=== PATIENT | male | born 1965 | race Caucasian/White ===

== ENCOUNTER 2018-12-29 13:22 | Day surgery (SDC) | payer OTHER ==
[2018-12-29] VITALS (12 sets, daily range): BP systolic 84–131; BP diastolic 40–79; PULSE 60–78; RESP 14–18; Ht 175.3 cm; Wt 86.2 kg
[~2018-12-29] VITALS: Ht 175.3 cm; Wt 86.2 kg
[~2018-12-29 13:22] MED LIST: ASPI-817 PO; ATOR20TA38 PO; LISI-524 PO; NIFE30TA66 PO
[2018-12-29] MEDS ORDERED: LACTATED RINGER'S 1,000 ML IV SCH (15:00)
--- NOTE | 2018-12-29 15:22 | PREAC ---
Date/Time of Note Date/Time of Note DATE: 12/29/18 TIME: 15:21 Anesthesia Eval and Record Evaluation Time Pre-Procedure Interview DATE: 12/29/18 TIME: 15:21 Age 53 Sex male NPO: 8 hrs Preoperative diagnosis Left proximal ulna deep mass, left elbow olecranon bursitis, left elbow olecranon osteophyte Planned procedure Left proximal ulna mass excision, left elbow olecranon bursectomy Past Medical History Past Medical History: Includes Cardio: HTN, Dyslipidemia Endo: Other (Gout) Surgery & Anesthesia Issues No known issue Meds Anticoagulation: No Beta Emily within 24 hr: No Reason Beta Emily not given: Pt. not on B-Emily Active Scripts Atorvastatin Calcium* (Atorvastatin Calcium*) 20 Mg Tablet, 20 MG PO QHS, #30 TAB Prov:EDWINA MCKEON NP 07/06/15 Nifedipine* (Procardia XL*) 30 Mg Tabsr, 30 MG PO DAILY for 30 Days, TAB Prov:EDWINA MCKEON NP 07/06/15 Lisinopril* (Zestril*) 10 Mg Tab, 10 MG PO DAILY for 30 Days, TAB Prov:EDWINA MCKEON LITHOGRAPH DESIGNER 07/06/15 Aspirin* (Aspirin* EC) 81 Mg Tabec, 81 MG PO DAILY for 30 Days Prov:EDWINA MCKEON NP 07/06/15 Current Medications Lactated Ringer's 1,000 ml @ 25 mls/hr Q24H IV ; Start 12/29/18 at 15:00 Meds reviewed: Yes Allergies Coded Allergies: No Known Allergy (Unverified , 12/29/18) Allergies Reviewed: Yes Labs/Studies Labs Reviewed: Reviewed by anesthesiologist test: N/A Pre-procedure Exam Last vitals Vital Signs Date Temp Pulse Resp B/P (MAP) Pulse Ox O2 O2 Flow FiO2 Time Delivery Rate 12/29/18 97.7 60 16 131/79 100 Room Air 15:01 (96) Airway: Adequate mouth opening Mallampati: Mallampati I Teeth: Normal Lung: Normal Heart: Normal ASA Physical Status ASA physical status: 2 Emergency: None Planned Anesthetic General/MAC: LMA Planned Pain Management Parenteral pain med Pre-operative Attestations Prior to commencing anesthesia and surgery, the patient was re-evaluated, there was verification of: *The patient's identity *The results of appropriate recent lab work and preoperative vital signs *The above evaluation not changing prior to induction *Anesthetic plan, risk benefits, alternative and complications discussed with patient/family; questions answered; patient/family understands, accepts and wishes to proceed. JOHN AMAYA MD Dec 29, 2018 15:22
--- NOTE | 2018-12-29 17:48 | HPN ---
Date/Time of Note Date/Time of Note DATE: 12/29/18 TIME: 17:48 Interval H&P Admission Note Pt. seen H&P reviewed: No system changes ESTRELLITA FAM Dec 29, 2018 17:48
[2018-12-29] MEDS ORDERED: CEFAZOLIN 1 GM INJ ONE (17:53)
[2018-12-29] MEDS ORDERED: MIDAZOLAM 1 MG/ML 2 ML INJ ONE (17:53)
[2018-12-29] MEDS ORDERED: FENTAnyl 50 MCG/ML VIAL ONE (17:53)
[2018-12-29] MEDS ORDERED: PROPOFOL 20 ML ONE (17:53)
[2018-12-29] MEDS ORDERED: ROPIVACAINE 0.5 % 30 ML VIAL ONE (17:53)
[2018-12-29] MEDS ORDERED: METOCLOPRAMIDE 10 MG INJ ONE (18:24)
[2018-12-29] MEDS ORDERED: ONDANSETRON 4 MG INJ ONE (18:24)
[2018-12-29] MEDS ORDERED: DEXAMETHASONE 4 MG/ML 5 ML INJ ONE (18:24)
[2018-12-29] MEDS ORDERED: KETOROLAC 30 MG INJ ONE (18:24)
[2018-12-29] MEDS ORDERED: EPHEDrine 25 MG/5 ML SYG ONE (18:26)
--- NOTE | 2018-12-29 18:39 | OPPN ---
Date/Time of Note Date/Time of Note DATE: 12/29/18 TIME: 18:38 Operative Report Preoperative Diagnosis left elbow mass, olecranon bursitis, osteophyte Postoperative Diagnosis left elbow mass, olecranon bursitis, osteophyte Operation/Procedure Performed left elbow mass excision, olecranon bursectomy, osteophyte excision Surgeon see signature line entry level administrative assistant none Anesthesia: general Estimated blood loss: 0 - 10 ml's Transfusion Required none Specimen mass Grafts/Implants none Complications none ESTRELLITA FAM Dec 29, 2018 18:39
--- NOTE | 2018-12-29 18:43 | PAC ---
Date/Time of Note Date/Time of Note DATE: 12/29/18 TIME: 18:43 Post-Anesthesia Notes Post-Anesthesia Note Last documented vital signs Vital Signs Date Temp Pulse Resp B/P (MAP) Pulse Ox O2 O2 Flow FiO2 Time Delivery Rate 12/29/18 97.7 60 16 131/79 100 Room Air 18:41 (96) Activity: WNL Respiratory function: WNL Cardiovascular function: WNL Mental status: Baseline Pain reasonably controlled: Yes Hydration appropriate: Yes Nausea/Vomiting absent: Yes JOSE ROSALES MD Dec 29, 2018 18:43
--- NOTE | 2018-12-29 21:57 | OPR ---
DATE OF OPERATION: 12/29/2018 SURGEON: Louie Aguilar MD ANESTHESIA: Peripheral nerve block plus general. PREOPERATIVE DIAGNOSES: 1. Left proximal ulna mass measuring 3 cm x 2 cm. 2. Left elbow olecranon bursitis. 3. Left elbow olecranon osteophyte. POSTOPERATIVE DIAGNOSES: 1. Left proximal ulna mass measuring 3 cm x 2 cm. 2. Left elbow olecranon bursitis. 3. Left elbow olecranon osteophyte. PROCEDURES: 1. Excision of left proximal ulna deep mass measuring 3 cm x 2 cm at the extensor carpi ulnaris tendon. 2. Left elbow olecranon bursectomy. 3. Excision of osteophyte, left proximal ulna/olecranon. OPERATIVE FINDINGS: 1. Gouty mass at the left proximal ulna measuring 3 cm x 2 cm at the ECU tendon. 2. Left elbow olecranon bursitis. 3. Left elbow olecranon osteophyte. INDICATION FOR PROCEDURE: A 53-year-old male with longstanding left elbow mass which was increasing in size. He also has olecranon bursitis. I discussed the options and the patient elected to proceed with surgical intervention, understanding risks and benefits. DESCRIPTION OF PROCEDURE: The patient was seen in preoperative holding area and all further questions were answered. Again, he gave informed consent, understanding risks and benefits. He was taken to the operative suite, placed in supine position. A peripheral nerve block was performed by the anesthesia team and the patient was placed under general anesthesia. Tourniquet was placed in left upper extremity and left upper extremity was prepped with ChloraPrep stick and draped in usual sterile fashion. Esmarch bandage was used to exsanguinate the extremity and tourniquet was inflated to 250 mmHg. Of note, 2 grams of Ancef IV was given prior to tourniquet inflation. A longitudinal incision over the proximal left ulna was utilized with sharp dissection carried down through skin and subcutaneous tissue. Attention was first turned to the mass at the proximal ulna which was at the ECU tendon. A Bovie electrocautery was used to dissect around the mass which had the appearance of gout originating from the ECU tendon. The mass was completely excised and measured 3 cm x 2 cm. Attention was then turned to the olecranon bursitis. An incision was made over the olecranon and sharp dissection was carried down through skin and subcutaneous tissue. The olecranon bursa was dissected around circumferentially down to the level of the triceps tendon at the olecranon. The bursa was completely excised. Attention was then turned to the olecranon osteophyte and was visualized and palpated. It was removed using a rongeur. A rongeur was used to completely excise olecranon osteophyte down to smooth edges. The wound was copiously irrigated. Skin was closed with 5-0 nylon. Xeroform was placed in the wound followed by sterile gauze, Webril and a long arm splint. Tourniquet was deflated and patient was awakened from anesthesia. He was taken to the postoperative suite in stable condition, tolerated the procedure well without complication. SPECIMENS: Left elbow mass. ESTIMATED BLOOD LOSS: 5 mL. COUNTS: Sponge and needle counts correct. CONDITION ON DISCHARGE: Stable. The patient was given a nonrefillable 5-day prescription for pain medication for surgery today. Dictated By: LOUIE SHANKAR/ERIN Conf#: [id number] DID#: [id number] CATRACHO
== END 2018-12-29 20:08 | disposition home or self-care (01) ==
LOC: SDS 13:22
PROVIDERS: ATTEND Orthopaedic Surgery Hand Surgery
DX: M1A.0221 Idiopathic chronic gout, left elbow, with tophus (tophi) (principal); M70.22 Olecranon bursitis, left elbow; M25.722 Osteophyte, left elbow; I10 Essential (primary) hypertension
CPT/HCPCS: 24105; 88307; J0690; J1100; J1885; J2250; J2405; J2765; J2795; J3010; Z7512; Z7610